=== PATIENT | female | born 1995 | race Caucasian/White ===

== ENCOUNTER 2019-09-25 17:50 | Inpatient (IN) ==
[2019-09-25 18:34] LABS: BASO# 0.02 X1000 (0.0-0.2); BASO% 0.2 % (0.0-0.8); EOS# 0.09 X1000 (0.0-0.7); EOS% 0.9 % (0.0-10.0); HEMATOCRIT 33.2 % (37.0-47.0); IMM GRAN# 0.03 X1000 (0.0-0.04); IMM GRAN% 0.3 % (0.0-0.5); LYMPH# 2.04 X1000 (1.2-3.4); LYMPH% 20.9 % (20.5-51.1); MCHC 30.1 g/dL (33-37); MCV 73.1 FL (81-99); MONO% 10.2 % (1.7-9.3); MPV 10.1 FL (7.4-10.4); NEUT# 6.58 X1000 (1.4-6.5); NEUT% 67.5 % (42.2-75.2); PLT 325 X1000 (130-400); RBC 4.54 XMIL (4.2-5.4); RDW 16.8 % (11.5-14.5); WBC 9.76 X1000 (4.8-10.8)
[2019-09-25 18:56] LABS: ANISOCYTOSIS OCCASIONAL; EOS 2 % (1-10); LARGE PLATELETS OCCASIONAL; LYMPHS 28 % (21-51); MICROCYTOSIS OCCASIONAL; MONO 4 % (1-9); SEGS 64 % (42-75)
[2019-09-25 20:27] LABS: URINE SOURCE VOIDED
[2019-09-25 20:35] LABS: BILIRUBIN URINE NEGATIVE (NEGATIVE); BLOOD URINE NEGATIVE (NEGATIVE); COLOR YELLOW; GLUCOSE URINE NEGATIVE (NEGATIVE); KETONE URINE NEGATIVE (NEGATIVE); LEUKOCYTES URINE SMALL (NEGATIVE); NITRITE URINE NEGATIVE (NEGATIVE); PH URINE 7.5; PROTEIN URINE 30 mg/dL (NEGATIVE); SP GRAVITY URINE 1.033; TURBIDITY URINE CLEAR (CLEAR); UROBILINOGEN URINE NORMAL (NORMAL)
[2019-09-25 20:56] LABS: UR AMPHETAMINES QUAL NONE DETECTED (NONE DETECT); UR BARBITUATES QUAL NONE DETECTED (NONE DETECT); UR BENZODIAZEPIN QUAL NONE DETECTED (NONE DETECT); UR CANNABINOIDS QUAL NONE DETECTED (NONE DETECT); UR COCAINE QUAL NONE DETECTED (NONE DETECT); UR METHADONE QUAL NONE DETECTED (NONE DETECT); UR OPIATES QUAL NONE DETECTED (NONE DETECT); UR OXYCODONE QUAL NONE DETECTED (NONE DETECT); UR PCP QUAL NONE DETECTED (NONE DETECT)
[2019-09-28 05:51] LABS: BASO# 0.02 X1000 (0.0-0.2); BASO% 0.1 % (0.0-0.8); EOS# 0.12 X1000 (0.0-0.7); EOS% 0.8 % (0.0-10.0); HEMATOCRIT 30.2 % (37.0-47.0); IMM GRAN# 0.04 X1000 (0.0-0.04); IMM GRAN% 0.3 % (0.0-0.5); LYMPH# 2.56 X1000 (1.2-3.4); LYMPH% 17.4 % (20.5-51.1); MCHC 29.8 g/dL (33-37); MCV 73.7 FL (81-99); MONO# 1.59 X1000 (0.11-0.59); MONO% 10.8 % (1.7-9.3); MPV 10.5 FL (7.4-10.4); NEUT# 10.39 X1000 (1.4-6.5); NEUT% 70.6 % (42.2-75.2); PLT 342 X1000 (130-400); RDW 17.2 % (11.5-14.5); WBC 14.72 X1000 (4.8-10.8)
[2019-09-29 09:03] VITALS: BP 127/58
== END 2019-09-29 12:35 | disposition home or self-care (01) | DRG 788 ==
LOC: LD 17:50
PROVIDERS: ADMIT Obstetrics & Gynecology; ATTEND Obstetrics & Gynecology